=== PATIENT | female | born 1990 | race Caucasian/White ===

== ENCOUNTER 2019-01-19 04:50 | Inpatient (IN) | payer MEDICAID, OTHER ==
[~2019-01-19] VITALS: Ht 154.9 cm; Wt 65.9 kg
[2019-01-19] VITALS (16 sets, daily range): BP systolic 100–127; BP diastolic 57–89
--- NOTE | 2019-01-19 05:00 | NUR ---
NEIDA CHILDRESS presented to unit via WC from ED, accompanied by family and staff, with c/o WATER BROKE,CONTRACTIONS. NEIDA CHILDRESS weighed, gowned, voided, and to bed. EFHM and TOCO applied, VS taken. NEIDA CHILDRESS oriented to bed controls, call light, TV, heat, and A/C controls.
--- NOTE | 2019-01-19 05:18 | NUR ---
Dr. Nuno called and informed that pt of Dr. Reyes , 39/2 presented with ruptured membranes and is 7-8cm dilated, 100% effaced, and -1 station. states that she is on her way.
[2019-01-19] MEDS ORDERED: D5 LR IV SOLUTION 1,000 ML IV ONE (05:19)
[2019-01-19 05:20] LABS: BILIRUBIN,URINE NEGATIVE (NEGATIVE); CLARITY,URINE SLIGHTLY CLOUDY; COLOR,URINE YELLOW; GLUCOSE, URINE (UA) NEGATIVE (NEGATIVE); KETONES,URINE NEGATIVE (NEGATIVE); LEUKOCYTE ESTERASE ,URINE 1+ (NEGATIVE); NITRITE,URINE NEGATIVE (NEGATIVE); PH,URINE 7 (5-9); PROTEIN,URINE NEGATIVE (NEGATIVE); UROBILINOGEN,URINE NORMAL (NORMAL)
[2019-01-19] MEDS ORDERED: D5 LR IV SOLUTION 1,000 ML IV SCH (05:27)
[2019-01-19 05:30] LABS: BACTERIA,URINE TRACE /HPF; WBC,URINE RARE /HPF
[2019-01-19] MEDS ORDERED: MINERAL OIL CONCENTRATE 99.9% 15 ML UDC TOP PRN (05:30)
[2019-01-19 05:49] LABS: BASOPHILS % (AUTO) 0 % (0-10); EOSINOPHILS % (AUTO) 0 % (0-10); HEMATOCRIT 36 % (35-52); HEMOGLOBIN 12.3 G/DL (11.5-16.0); LYMPHOCYTES # (AUTO) 1.3 X 10^3 (1.0-4.0); LYMPHOCYTES % (AUTO) 14 % (12-44); MEAN CORPUSCULAR HEMOGLOBIN 31 PG (25-34); MEAN CORPUSCULAR HGB CONC 35 G/DL (32-36); MEAN CORPUSCULAR VOLUME 90 FL (80-99); MEAN PLATELET VOLUME 10.1 FL (7.4-10.4); MONOCYTES # (AUTO) 0.7 X 10^3 (0.0-1.0); MONOCYTES % (AUTO) 8 % (0-12); NEUTROPHILS # (AUTO) 7.1 X 10^3 (1.8-7.8); NEUTROPHILS % (AUTO) 78 % (42-75); PLATELET COUNT 173 10^3/uL (130-400); RED CELL DISTRIBUTION WIDTH 13.9 % (10.0-14.5); WHITE BLOOD COUNT 9.1 10^3/uL (4.3-11.0)
[2019-01-19] MEDS ORDERED: PREN1TAB79 PO (05:52)
--- NOTE | 2019-01-19 05:53 | NUR ---
Dr. Nuno in pt room. SVE 9cm, 0 station, and 100% effaced.
[2019-01-19] MEDS ORDERED: CATHETER FLUSH 10 ML SYR IV SCH ×2 (06:00→14:00)
--- NOTE | 2019-01-19 06:04 | History & Physical-OB ---
OB - Chief Complaint & HPI Date/Time Date of Admission: Date of Admission: Jan 19, 2019 at 05:20 Date seen by a Provider: Jan 19, 2019 Time Seen by a Provider: 05:59 Chief Complaint/History OB-Reason for Admission/Chief: Rupture of Membranes Hx : 2 Hx Para: 1 Expected Date of Delivery: Jan 24, 2019 Gestational Age in Weeks: 39 Gestational Age in Days: 2 History of Labs O +, Ab neg, Rub Non Imm, GC/Chyl neg, HebB/HIV/RPR NR, GBS neg Allergies and Home Medications Allergies Coded Allergies: No Known Drug Allergies (Unverified , 01/19/19) Home Medications Vit W-Ca,Fe,FA(<1 mg) 1 Each Tablet, 1 EACH PO DAILY, (Reported) Patient Home Medication List Home Medication List Reviewed: Yes OB - History Hx of Present Care: Yes Ultrasounds: Normal mid trimester US Obstetrical Complications: None Medical Complications: None Information Induced Hypertension: No Maternal Gestational Diabetes: No Hemorrhage: No Obstetrical History Hx : 2 Hx Para: 1 Number of Living Children: 1 Hx Termination: No Hx Multiple Gestation: No Hx Ectopic : No Hx Stillbirth: No Hx Complication: No Hx Induced Hypertens: No Hx Maternal Gestational Diabet: No Hx Hemorrhage: No Patient Past Medical History None Social History/Family History HIV/AIDS: No Recent Infectious Disease Expo: No Sexually Transmitted Disease: No Alcohol Use: Denies Use Recreational Drug Use: No Immunizations Hepatitis B: No Tetanus Booster (TDap): Less than 5yrs Rubella: not immune RPR/VDRL: Negative GBS Status: Negative HBsAG: Negative OB - Admission Exam Physical Exam HEENT: NCAT Heart: Rhythm Normal Lungs: Clear Extremities: Normal Reflexes: Normal Cervical Dilatation: 9cm Effacement: 100% Station: 0 Membranes: Ruptured Amniotic Fluid: Clear Decelerations: No Decelerations Short Term Variability: Present Contractions on Admission: < 5 Minutes Apart Labs Laboratory Tests Test 01/19/19 05:05 01/19/19 05:30 Range/Units Urine Color YELLOW Urine Clarity SLIGHTLY CLOUDY Urine pH 7 5-9 Urine Specific [place] 1.005 L 1.016-1.022 Urine Protein NEGATIVE NEGATIVE Urine Glucose (UA) NEGATIVE NEGATIVE Urine Ketones NEGATIVE NEGATIVE Urine Nitrite NEGATIVE NEGATIVE Urine Bilirubin NEGATIVE NEGATIVE Urine Urobilinogen NORMAL NORMAL MG/DL Urine Leukocyte Esterase 1+ H NEGATIVE Urine RBC (Auto) 2+ H NEGATIVE Urine RBC 2-5 H /HPF Urine WBC RARE /HPF Urine Squamous Epithelial Cells 5-10 /HPF Urine Crystals NONE /LPF Urine Bacteria TRACE /HPF Urine Casts NONE /LPF Urine Mucus NEGATIVE /LPF Urine Culture Indicated NO White Blood Count 9.1 4.3-11.0 10^3/uL Red Blood Count 3.93 L 4.35-5.85 10^6/uL Hemoglobin 12.3 11.5-16.0 G/DL Hematocrit 36 35-52 % Mean Corpuscular Volume 90 80-99 FL Mean Corpuscular Hemoglobin 31 25-34 PG Mean Corpuscular Hemoglobin Concent 35 32-36 G/DL Red Cell Distribution Width 13.9 10.0-14.5 % Platelet Count 173 130-400 10^3/uL Mean Platelet Volume 10.1 7.4-10.4 FL Neutrophils (%) (Auto) 78 H 42-75 % Lymphocytes (%) (Auto) 14 12-44 % Monocytes (%) (Auto) 8 0-12 % Eosinophils (%) (Auto) 0 0-10 % Basophils (%) (Auto) 0 0-10 % Neutrophils # (Auto) 7.1 1.8-7.8 X 10^3 Lymphocytes # (Auto) 1.3 1.0-4.0 X 10^3 Monocytes # (Auto) 0.7 0.0-1.0 X 10^3 Eosinophils # (Auto) 0.0 0.0-0.3 10^3/uL Basophils # (Auto) 0.0 0.0-0.1 10^3/uL OB - Assessment/Plan/Diagnosis Assessment Assessment: active labor Admission Dx Labor Admission Status: Inpatient Order (span 2 midnights) Reason for Inpatient Admission: Active Labor Plan Plan: Expectant Management Other Plan 28 yo @ 39.2 wga here in active labor Plan - GBS neg - Expectant management Copy Copies To 1: DUY KELLEY MD,GEOVANNA Bower MD Jan 19, 2019 06:04
[2019-01-19] MEDS ORDERED: OXYTOCIN/NORMAL SALINE 500 ML IV ONE (06:21)
[2019-01-19] MEDS: OXYTOCIN/NORMAL SALINE 500 ML IV SCH ×2 (06:42→07:22)
--- NOTE | 2019-01-19 06:45 | NUR ---
Recovery started. FF1/U, light rubra bleeding, no clots noted.
--- NOTE | 2019-01-19 06:56 | OB Labor & Delivery Record ---
Vag Delivery Note Vag Delivery Note Date of Delivery: 01/19/19 Preoperative Diagnosis: Agueda Stephen is a (28 /Para 2 / 1, Gestational Age (wks)39.2 here in active labor following SROM Postoperative Diagnosis: Same Surgeon: GEOVANNA KHALIL Chemical Radiation Technician: None Anesthesia: None Delivery Type: Uncomplicated @ 0638 Findings: Viable female , apgars 9/9, weight 8 #0, 3615 Lacerations: None Intact placenta with 3 vessel cord. No nuchal cord, body cord or shoulder dystocia Estimated Blood Loss: 150 ml Complications: None Condition: Stable Description of Procedure: The patient is a 28 year old female who presented SROM in active labor. She was admitted and informed consent was obtained. Her labor course was unremarkable. She progressed to complete dilatation and began to push. She was then set up for delivery. The 's head was delivered atraumatically in the TWIN position. The shoulders and remainder of the 's body were then delivered without difficulty. Upon delivery, the head was held below the level of the perineum and the mouth and nares were bulb suctioned. The cord was doubly clamped and cut by FOB and the infant was place on maternal abdomen and attended to by pediatric nurse. An intact placenta with 3-vessel cord delivered via Zainab and there was found to be minimal bleeding.~ Vigorous fundal massage was performed and the fundus was found to be firm. IV oxytocin was given. Examination of the vagina and perineum revealed no lacerations that required repair. Following the repair, sponge, instrument and needle counts were correct. Mom and baby were both in stable condition in the labor suite. Vitals - Labs Labs Laboratory Tests 01/19/19 05:05: Urine Color YELLOW, Urine Clarity SLIGHTLY CLOUDY, Urine pH 7, Urine Specific [place] 1.005L, Urine Protein NEGATIVE, Urine Glucose (UA) NEGATIVE, Urine Ketones NEGATIVE, Urine Nitrite NEGATIVE, Urine Bilirubin NEGATIVE, Urine Urobilinogen NORMAL, Urine Leukocyte Esterase 1+H, Urine RBC (Auto) 2+H, Urine RBC 2-5H, Urine WBC RARE, Urine Squamous Epithelial Cells 5-10, Urine Crystals NONE, Urine Bacteria TRACE, Urine Casts NONE, Urine Mucus NEGATIVE, Urine Culture Indicated NO 01/19/19 05:30: White Blood Count 9.1, Red Blood Count 3.93L, Hemoglobin 12.3, Hematocrit 36, Mean Corpuscular Volume 90, Mean Corpuscular Hemoglobin 31, Mean Corpuscular Hemoglobin Concent 35, Red Cell Distribution Width 13.9, Platelet Count 173, Mean Platelet Volume 10.1, Neutrophils (%) (Auto) 78H, Lymphocytes (%) (Auto) 14 , Monocytes (%) (Auto) 8, Eosinophils (%) (Auto) 0, Basophils (%) (Auto) 0, Neutrophils # (Auto) 7.1, Lymphocytes # (Auto) 1.3, Monocytes # (Auto) 0.7, Eosinophils # (Auto) 0.0, Basophils # (Auto) 0.0 GEOVANNA KHALIL MD Jan 19, 2019 06:56
[2019-01-19] MEDS ORDERED: MEASLES,MUMPS,RUBELLA 1 EA INJ SQ ONE (07:00)
[2019-01-19] MEDS ORDERED: WITCH HAZEL(TUCKS) 40 EA JAR TOP PRN (07:00)
[2019-01-19] MEDS ORDERED: BENZOCAINE/MENTHOL (DERMOPLAST) 56 ML CAN TP PRN (07:00)
[2019-01-19] MEDS ORDERED: TETANUS,DIPTH,PERTUSS P/F (BOOSTRIX) 0.5 ML VIAL IM ONE (07:00)
[2019-01-19] MEDS ORDERED: FLU QUADRIvalent (5+ YOA) 2018-2019 (AFLURIA) 0.5 ML IM ONE (07:00)
--- NOTE | 2019-01-19 07:00 | NUR ---
FFU/1, light rubra bleeding, no clots noted. . Ice water provided. No questions or concerns voiced at this time.
--- NOTE | 2019-01-19 07:15 | NUR ---
Recovery started. FF/U, light rubra bleeding, no clots noted.
--- NOTE | 2019-01-19 07:30 | NUR ---
JONAH CARE WITH PAD CHANGE. FUNDUS MASSAGED TO FIRM AT U+1. EXPRESSED 3 3-4 CM CLOTS. VAGINAL FLOW MOD RUBRA. PAD SATURATED. DENIES URGE TO VOID BUT BLADDER FILLING. ASSESSMENT COMPLETED. DENIES PAIN. FAMILY AT BEDSIDE. INSTRUCTED ON ROOM SERVICE. WANTS TO WAIT UNTIL IN PP ROOM TO EAT.
--- NOTE | 2019-01-19 08:30 | NUR ---
UP TO THE BATHROOM WITH ASSISTANCE X2. VOIDED WITHOUT PROBLEMS. PERICARE AND PAD CHANGE. PREPARING FOR TRANSFER TO PP ROOM.
--- NOTE | 2019-01-19 08:40 | NUR ---
TRANSFERRED TO ROOM 310 VIA W/C IN STABLE CONDITION ACC BY THIS RN, STUDENT NURSE'S ,FOB, IN CRIB, AND OTHER FAMILY MEMBERS. ASSISTED TO BED. GOWN CHANGED. FF U+1. VAG FLOW LT/MOD RUBRA. ORIENTED TO SURROUNDING, CALL LIGHT OPERATION, ROOM SERVICE PROCEDURE, AND INFORMATION PAPERS.
[2019-01-19] MEDS: IBUPROFEN 600 MG (MOTRIN) TAB PO SCH ×3 (09:29→20:37)
--- NOTE | 2019-01-19 10:00 | NUR ---
DOING WELL. STATES GOT UP TO THE BATHROOM BY SELF. EATING BREAKFAST. STATES TIRED. FF U+1. VAG FLOW LT/MOD RUBRA. REPORTS PASSING A CLOT APPROX. SIZE OF EGG. INFORMED PT OF NEED TO LET RN SEE CLOTS EGG SIZED OR LARGER. STATES UNDERSTANDING.
--- NOTE | 2019-01-19 12:10 | NUR ---
SALINE LOCK D/C'ED WITH TIP INTACT. SITE CLEAR. STATES PAIN WAS A 7 WITH BUT JUST SORE FROM FUNDAL MASSAGE WHEN NOT CRAMPING.
--- NOTE | 2019-01-19 14:00 | NUR ---
CONTINUES TO VOID WELL. AMBULATES WITHOUT DIFFICULTY. FF U/0. VAG FLOW LT/MOD WITHOUT FURTHER CLOTS PER PT. CONTINUES TO CARE FOR IN ROOM.
[2019-01-19] MEDS ORDERED: MEASLES,MUMPS,RUBELLA 1 EA INJ ONE (14:57)
--- NOTE | 2019-01-19 15:12 | NUR ---
MMR GIVEN SUBQ IN LEFT UPPER ARM. SITE CLEAR.
--- NOTE | 2019-01-19 15:30 | NUR ---
SHOWERED WITHOUT PROBLEMS. SPOUSE AT BEDSIDE HOLDING .
--- NOTE | 2019-01-19 17:15 | NUR ---
DENIES ANY PAIN FF U/0. VAG FLOW LT RUBRA PER PT. HOLDING INFANT. STATES WELL.
--- NOTE | 2019-01-19 18:30 | NUR ---
EATING STORK MEAL.
--- NOTE | 2019-01-19 19:44 | NUR ---
To patient room at this time. Stork meal finished. , patient and s/o watching tv. POC discussed with patient. Patient and s/o voice understanding, no further needs or questions at this time. Call light within reach. Will return for assessment and vs.
[2019-01-20 00:10] VITALS: BP 102/62
[2019-01-20 03:33] VITALS: BP 98/56
[2019-01-20 07:55] VITALS: BP 117/82
[2019-01-20 08:27] VITALS: BP 117/82
[2019-01-20] MEDS: IBUPROFEN 600 MG (MOTRIN) TAB PO SCH ×2 (08:57→14:59)
--- NOTE | 2019-01-20 14:16 | Discharge Summary ---
Diagnosis/Chief Complaint Date of Admission Jan 19, 2019 at 05:20 Date of Discharge 01/20/19 Admission Diagnosis Admission Diagnosis Term 39 week gestation SROM Discharge Diagnosis Term delivery of female infant Uncomplicated Discharge Summary-Simple/Stand Procedures Uncomplicated Discharge Physical Examination Allergies: Coded Allergies: No Known Drug Allergies (Unverified , 01/19/19) Vitals & I&Os Vital Sign - Last 12Hours Date Time Temp Pulse Resp B/P (MAP) Pulse Ox O2 Delivery O2 Flow Rate FiO2 01/20/19 08:27 101 20 117/82 98 Room Air 01/20/19 07:55 97.5 General Appearance: Alert, Oriented X3, Cooperative, No Acute Distress HEENT: Mucous Memb Moist/[place] Respiratory: Clear to Auscultation, Normal Air Movement Cardiovascular: Regular Rate, No Murmurs Abdominal: Normal Bowel Sounds, Soft, No Tenderness, Other (fundus firm and below umbilicus) Extremities: No Edema, No Tenderness/Swelling Skin: No Rashes, No Breakdown Neuro: Normal Speech, Strength at 5/5 X4 Ext, Sensation Intact, Cranial Nerves 3-12 NL Psych/Mental Status: Mental Status NL, Mood NL Hospital Course Was the Problem List Reviewed?: Yes See final discharge diagnosis. Discussion & Recommendations 28 yo G2 now P2 @ 39 wga delivered term female via Uncomplicated Discharge Condition at discharge stable Instructions to patient/family Please see electronic discharge instructions given to patient. Discharge Medications Reviewed and agree with Discharge Medication list on patient's Discharge Instruction sheet Clinical Quality Measures DVT/VTE Risk/Contraindication: Risk Factor Score Per Nursin RFS Level Per Nursing on Admit: 1=Low/No VTE PPX Copy Copies To 1: DUY KELLEY MD, HOLLY R MD Jan 20, 2019 14:16
[2019-01-20] MEDS ORDERED: IBUP-844 PO (14:17)
--- NOTE | 2019-01-20 14:19 | Discharge Instructions ---
Discharge Inst-Women's Serv Depart Medications New, Converted or Re-Newed RX: Transmitted to Pharmacy New Medications: Ibuprofen (Ibu) 600 Mg Tablet 600 MG PO Q6H, #90 TAB Continued Medications: Vit W-Ca,Fe,FA(<1 mg) ( Vitamins) 1 Each Tablet 1 EACH PO DAILY, TAB Follow Up/Instructions Goal/Follow Up: F/u with Dr Kelley in 6 weeks Activity Activity: Bedrest Driving Instructions: You May Drive NO SMOKING: NO SMOKING Nothing Inside Vagina: No Douching, No [place], No Tampons Diet Discharge Diet: No Restrictions Symptoms to Report to : Bleeding Excessive, Fever Over 101 Degrees F, Nausea /Vomiting, Shortness of Breath Copies To 1: DUY KELLEY MD, HOLLY R MD Jan 20, 2019 14:19
--- NOTE | 2019-01-20 14:55 | NUR ---
Pt discharged. Verbalized understanding of oral and written instructions. to be transferred due to failed [facility]CHD results. Awaiting [facility]'s arrival. Addendum: 01/20/19 at 1613 by WYATT JOYA RN Called [facility] in [place] to cancel Ibuprofen prescription and called to [facility] in [place].
== END 2019-01-20 16:18 | disposition home or self-care (01) | DRG 807 ==
LOC: WSo 04:50 → LDRP 04:51 → WSo 05:20 → LDRP 07:36
PROVIDERS: ADMIT Family Medicine; ATTEND Family Medicine
PROC: 10E0XZZ Delivery of Products of Conception, External Approach (ICD-10-PCS; principal; 2019-01-19)
DX: O80 Encounter for full-term uncomplicated delivery (principal); Z37.0 Single live birth; Z3A.39 39 weeks gestation of pregnancy
CPT/HCPCS: 36415; 81000; 85025; 86850; 86900; 86901; 90707; 99212

== ENCOUNTER → 2019-10-28 | Outpatient (CLI) | payer MEDICAID ==
[~2019-10-28] MED LIST: IBUP-844 PO; PREN1TAB79 PO
[2019-10-28 12:07] LABS: BASOPHILS % (AUTO) 0 % (0-10); EOSINOPHILS % (AUTO) 1 % (0-10); HEMATOCRIT 34 % (35-52); HEMOGLOBIN 11.1 G/DL (11.5-16.0); LYMPHOCYTES % (AUTO) 16 % (12-44); MEAN CORPUSCULAR HEMOGLOBIN 30 PG (25-34); MEAN CORPUSCULAR HGB CONC 33 G/DL (32-36); MEAN CORPUSCULAR VOLUME 93 FL (80-99); MEAN PLATELET VOLUME 9.4 FL (7.4-10.4); MONOCYTES % (AUTO) 5 % (0-12); NEUTROPHILS # (AUTO) 6.1 X 10^3 (1.8-7.8); NEUTROPHILS % (AUTO) 77 % (42-75); PLATELET COUNT 212 10^3/uL (130-400); RED CELL DISTRIBUTION WIDTH 13.5 % (10.0-14.5); WHITE BLOOD COUNT 7.9 10^3/uL (4.3-11.0)
[2019-10-28 12:08] LABS: EOSINOPHILS # (AUTO) 0.1 10^3/uL (0.0-0.3); LYMPHOCYTES # (AUTO) 1.3 X 10^3 (1.0-4.0); MONOCYTES # (AUTO) 0.4 X 10^3 (0.0-1.0)
[2019-10-28 12:29] LABS: BILIRUBIN,URINE NEGATIVE (NEGATIVE); CLARITY,URINE CLEAR; COLOR,URINE YELLOW; GLUCOSE, URINE (UA) TRACE (NEGATIVE); KETONES,URINE NEGATIVE (NEGATIVE); NITRITE,URINE NEGATIVE (NEGATIVE); PROTEIN,URINE NEGATIVE (NEGATIVE)
[2019-10-28 12:30] LABS: BACTERIA,URINE FEW /HPF; LEUKOCYTE ESTERASE ,URINE 2+ (NEGATIVE)
== END ==
LOC: LAB FS 11:28
PROVIDERS: ATTEND Family Medicine
DX: Z34.80 Encounter for supervision of other normal pregnancy, unspecified trimester (principal); R30.0 Dysuria
CPT/HCPCS: 36415; 81000; 82947; 85025; 86592; 87088

== ENCOUNTER → 2019-11-03 | Outpatient (CLI) | payer MEDICAID ==
[2019-11-03 16:47] LABS: CLARITY,URINE CLOUDY; COLOR,URINE YELLOW; GLUCOSE, URINE (UA) NEGATIVE (NEGATIVE); PROTEIN,URINE NEGATIVE (NEGATIVE)
[2019-11-03 16:48] LABS: BACTERIA,URINE TRACE /HPF; BILIRUBIN,URINE NEGATIVE (NEGATIVE); KETONES,URINE NEGATIVE (NEGATIVE); LEUKOCYTE ESTERASE ,URINE 3+ (NEGATIVE); NITRITE,URINE NEGATIVE (NEGATIVE); RBC,URINE 0-2 /HPF; SQUAMOUS EPITHELIAL CELL,UR >50 /HPF; WBC,URINE >100 /HPF
== END ==
LOC: LAB FS 16:02
PROVIDERS: ATTEND Family Medicine
DX: R30.0 Dysuria (principal)
CPT/HCPCS: 81000; 87088

== ENCOUNTER 2020-01-14 15:08 | Inpatient (IN) | payer MEDICAID ==
[2020-01-14] VITALS (11 sets, daily range): BP systolic 115–133; BP diastolic 60–82
[~2020-01-14] VITALS: Ht 154.9 cm; Wt 90.9 kg
[~2020-01-14 15:08] MED LIST changes: +OXYTOCIN PRE-MIX DRIP 500 ML IV ONE
--- NOTE | 2020-01-14 15:14 | NUR ---
1514 29 YR OLD FEMALE G 3 P 3 TRANSFERRED FROM ED ACC BY ED STAFF VIA CART TO LABOR ROOM 318 WITH ON CHEST AFTER A SPONTANEOUS VAGINAL DELIVERY OF A VIABLE FEMALE IN HER CAR WHILE ENROUTE TO THE HOSPITAL. SPOUSE PULLED OVER AND DELIVERED BABY. 911 WAS CALLED AND REPORTEDLY ACCOMPANIED TO THE HOSPITAL PT CONTINUED IN PRIVATE CAR. ASSISTED PT TO LABOR BED. PLACENTA REMAINS UNDELIVERED. DR. ALLIE AQUINO. PT HAD CALLED AT 1402 TO STATES WATER BROKE AND WAS ON HER WAY TO THE HOSPITAL FROM [facility]. DR. KELLEY AND DR. CONTRERAS BOTH MADE AWARE OF SITUATION. SUBSEQUENT CALLS ALERTED OB STAFF OF DELIVERING IN CAR. 1517 1000 CC LR STARTED IN LEFT AC WITH A #20 G INTRACATH TRA 125 CC/HR/PUMP. SITE CLEAR. BLOOD OBTAINED FOR LABS PRIOR TO INITIATING FLUIDS. INFANT IN STABLE CONDITION. SEE NURSERY NOTES. 1532 DR. KELLEY HERE. PT PLACED IN STIRRUPS FOR DELIVERY OF THE PLACENTA. 1537 SPONTANEOUS DELIVERY OF THE PLACENTA BY DR. KELLEY. FUNDUS MASSAGED TO FIRM AT U/1. VAG FLOW MODERATE RUBRA. OXYTOCIN STARTED AT 999 MLS/HR/PUMP. SITE CLEAR. 1545 NO REPAIR NEEDED. PERICARE WITH PAD/UNDERWEAR APPLIED. FF U/1. VAG FLOW MOD RUBRA. 1550 OUT OF STIRRUPS. FRESH GOWN. HOLDING . SPOUSE AT BEDSIDE.
[2020-01-14] MEDS: LACTATED RINGERS 1,000 ML IV SCH ×2 (15:17→23:17)
[2020-01-14] MEDS ORDERED: OXYTOCIN PRE-MIX DRIP 500 ML IV SCH (15:46)
--- NOTE | 2020-01-14 15:50 | History & Physical-OB ---
OB - Chief Complaint & HPI Date/Time Date of Admission: Date of Admission: Jan 14, 2020 at 15:08 Date seen by a Provider: Jan 14, 2020 Time Seen by a Provider: 15:30 Chief Complaint/History OB-Reason for Admission/Chief: Onset of Labor Hx : 3 Hx Para: 2 Gestational Age in Weeks: 39 Gestational Age in Days: 1 Allergies and Home Medications Allergies Coded Allergies: No Known Drug Allergies (Unverified , 01/19/19) Home Medications Ibuprofen 600 Mg Tablet, 600 MG PO Q6H Prescribed by: GEOVANNA KHALIL on 01/20/19 1417 Vit W-Ca,Fe,FA(<1 mg) 1 Each Tablet, 1 EACH PO DAILY, (Reported) Patient Home Medication List Home Medication List Reviewed: Yes OB - History Hx of Present Care: Yes Ultrasounds: Normal mid trimester US Obstetrical Complications: None Medical Complications: None Obstetrical History Hx Termination: No Hx Multiple Gestation: No Hx Stillbirth: No Hx Complication: No Hx Induced Hypertens: No Hx Maternal Gestational Diabet: No Patient Past Medical History None Social History/Family History HIV/AIDS: No Sexually Transmitted Disease: No Immunizations Hepatitis B: No Tetanus Booster (TDap): Less than 5yrs OB - Admission Exam Physical Exam HEENT: NCAT Heart: Rhythm Normal Lungs: Clear Abdomen: Other (uterus firm below umbilicus) Extremities: Normal OB - Assessment/Plan/Diagnosis Assessment Admission Dx Preciptous [place] hospital [place] side [place]. Admission Status: Inpatient Order (span 2 midnights) Reason for Inpatient Admission: Term vaginal precipitous delivery. Plan Plan: Expectant Management Other Plan Delivery of Placenta at 1537. Patient doing well. DUY KELLEY MD Jan 14, 2020 15:50
--- NOTE | 2020-01-14 15:52 | OB Labor & Delivery Record ---
Vag Delivery Note Vag Delivery Note Date of Delivery: 01/14/20 Preoperative Diagnosis: Agueda Stephen is a (29 /Para 3 / 2,Gestational Age (wks)39with [1 day] Postoperative Diagnosis: Same Surgeon: DUY KELLEY Store Deli Manager: [none] Anesthesia: [none] Delivery: placenta only Estimated Blood Loss: [100] ml Complications: None Condition: Stable Description of Procedure: The patient is a 29 year old female who presented [after delivery of on highway at approximately 1450. Upon entering the room, I delivered an intact placenta with 3-vessel cord delivered via Zainab and there was found to be minimal bleeding.~ Vigorous fundal massage was performed and the fundus was found to be firm. IV oxytocin was given. Examination of the vagina and perineum revealed no lacerations. Following the repair, sponge, instrument and needle counts were correct. Mom and baby were both in stable condition in the labor suite. DUY KELLEY MD Jan 14, 2020 15:52
[2020-01-14] MEDS ORDERED: TETANUS,DIPTH,PERTUSS P/F (BOOSTRIX) 0.5 ML VIAL IM ONE (16:00)
[2020-01-14] MEDS ORDERED: WITCH HAZEL(TUCKS) 40 EA JAR TOP PRN (16:00)
[2020-01-14] MEDS ORDERED: MEASLES,MUMPS,RUBELLA 1 EA INJ SQ ONE (16:00)
[2020-01-14] MEDS ORDERED: BENZOCAINE/MENTHOL (DERMOPLAST) 60 ML CAN TP PRN (16:00)
--- NOTE | 2020-01-14 16:00 | NUR ---
INFANT WELL. PT C/O CRAMPING. FF U/1. VAG FLOW LT/MOD RUBRA.BLADDER FILLING.
--- NOTE | 2020-01-14 16:15 | NUR ---
1615 FAMILY MEMBERS TO ROOM. FF U+1. VAG FLOW LT/MOD RUBRA. DENIES URGE TO VOID. 1630 FUNDUS REMAINS FIRM BUT ABOVE UMBILICUS. VAG FLOW LT/MOD RUBRA. HOLDING SKIN TO SKIN. 1650 UP TO THE BATHROOM. VOIDED LARGE AMOUNT. PERICARE PERFORMED. TUCKS AND DERMAPLAST APPLIED. BACK TO BED WITHOUT PROBLEMS. VAG FLOW LT/MOD RUBRA. FF U/1. LARGE FUNDUS NOTED. 1700 FAMILY AT BEDSIDE. FF U/1. VAG FLOW LT/MOD RUBRA.
[2020-01-14] MEDS: OXYTOCIN PRE-MIX DRIP 500 ML IV SCH ×2 (16:17→19:46)
[2020-01-14] MEDS: IBUPROFEN 600 MG (MOTRIN) TAB PO SCH ×2 (16:19→22:07)
[2020-01-14 16:53] LABS: BASOPHILS % (AUTO) 0 % (0-10); EOSINOPHILS % (AUTO) 0 % (0-10); HEMATOCRIT 38 % (35-52); HEMOGLOBIN 12.6 G/DL (11.5-16.0); LYMPHOCYTES # (AUTO) 1.7 X 10^3 (1.0-4.0); LYMPHOCYTES % (AUTO) 18 % (12-44); MEAN CORPUSCULAR HEMOGLOBIN 30 PG (25-34); MEAN CORPUSCULAR HGB CONC 34 G/DL (32-36); MEAN CORPUSCULAR VOLUME 89 FL (80-99); MEAN PLATELET VOLUME 10.9 FL (7.4-10.4); MONOCYTES # (AUTO) 0.7 X 10^3 (0.0-1.0); MONOCYTES % (AUTO) 7 % (0-12); NEUTROPHILS # (AUTO) 6.7 X 10^3 (1.8-7.8); NEUTROPHILS % (AUTO) 74 % (42-75); PLATELET COUNT 207 10^3/uL (130-400); RED CELL DISTRIBUTION WIDTH 14.5 % (10.0-14.5); WHITE BLOOD COUNT 9.1 10^3/uL (4.3-11.0)
[2020-01-14] MEDS: ACETAMINOPHEN 500 MG TAB (TYLENOL) PO SCH (17:55)
--- NOTE | 2020-01-14 18:00 | NUR ---
UP TO THE BATHROOM. LARGE VOID. PERICARE PERFORMED. PLAN TO LET PT EAT AND THEN TRANSFER TO PP ROOM. SPOUSE AT BEDSIDE.
--- NOTE | 2020-01-14 18:30 | NUR ---
TRANSFERRED TO ROOM 309 VIA W/C ACC BY SPOUSE, IN OPEN CRIB, AND THIS RN. ORIENTED TO SURROUNDINGS, CALL LIGHT, AND INFORMATION PAPERS. MENU GIVEN WITH DIETARY NUMBER AND INSTRUCTIONS. FF U/1. VAG FLOW LT/MOD RUBRA.
--- NOTE | 2020-01-14 19:35 | NUR ---
Pt in bed, . Fundus checked per this RN. Fundus firm. No excessive bleeding noted.
[2020-01-14] MEDS: DOCUSATE SODIUM 100 MG (COLACE) CAP PO SCH (20:55)
[2020-01-14] MEDS: CATHETER FLUSH 10 ML SYR IV SCH (22:07)
[2020-01-15] MEDS: ACETAMINOPHEN 500 MG TAB (TYLENOL) PO SCH ×3 (00:25→12:03)
[2020-01-15] MEDS: OXYTOCIN PRE-MIX DRIP 500 ML IV SCH ×2 (00:46→04:45)
[2020-01-15 00:48] VITALS: BP 112/70
[2020-01-15 04:00] VITALS: BP 122/72
[2020-01-15] MEDS: IBUPROFEN 600 MG (MOTRIN) TAB PO SCH ×2 (04:51→10:44)
[2020-01-15 05:38] LABS: BASOPHILS % (AUTO) 0 % (0-10); EOSINOPHILS # (AUTO) 0.1 10^3/uL (0.0-0.3); EOSINOPHILS % (AUTO) 1 % (0-10); HEMATOCRIT 33 % (35-52); HEMOGLOBIN 11.1 G/DL (11.5-16.0); LYMPHOCYTES # (AUTO) 1.9 X 10^3 (1.0-4.0); LYMPHOCYTES % (AUTO) 20 % (12-44); MEAN CORPUSCULAR HEMOGLOBIN 30 PG (25-34); MEAN CORPUSCULAR HGB CONC 33 G/DL (32-36); MEAN CORPUSCULAR VOLUME 89 FL (80-99); MEAN PLATELET VOLUME 10.1 FL (7.4-10.4); MONOCYTES # (AUTO) 0.8 X 10^3 (0.0-1.0); MONOCYTES % (AUTO) 8 % (0-12); NEUTROPHILS # (AUTO) 6.7 X 10^3 (1.8-7.8); NEUTROPHILS % (AUTO) 71 % (42-75); PLATELET COUNT 158 10^3/uL (130-400); RED CELL DISTRIBUTION WIDTH 14.7 % (10.0-14.5); WHITE BLOOD COUNT 9.4 10^3/uL (4.3-11.0)
[2020-01-15] MEDS: CATHETER FLUSH 10 ML SYR IV SCH (06:32)
[2020-01-15 08:00] VITALS: BP 117/74
--- NOTE | 2020-01-15 08:00 | NUR ---
A.M. ASSESSMENT COMPLETED. VSS. CARING FOR IN ROOM. GOOD INTERACTION NOTED.
[2020-01-15] MEDS: DOCUSATE SODIUM 100 MG (COLACE) CAP PO SCH (08:50)
--- NOTE | 2020-01-15 10:00 | NUR ---
CONTINUES TO CARE FOR IN ROOM. GOOD INTERACTION NOTED.
[2020-01-15 12:00] VITALS: BP 116/76
--- NOTE | 2020-01-15 12:12 | Discharge Summary ---
Diagnosis/Chief Complaint Date of Admission Jan 14, 2020 at 15:08 Date of Discharge January 15, 2020 Admission Diagnosis Admission Diagnosis Precipitous term vaginal delivery outside hospital. Discharge Diagnosis Precipitous term vaginal delivery. Discharge Summary-OBS Procedures None. Discharge Physical Examination Allergies: Coded Allergies: No Known Drug Allergies (Unverified , 01/19/19) Vitals & I&Os Intake and Output 01/15/20 00:00 Intake Total 1375 ml Balance 1375 ml Vital Sign - Last 12Hours Date Time Temp Pulse Resp B/P (MAP) Pulse Ox O2 Delivery O2 Flow Rate FiO2 01/15/20 08:00 36.5 98 18 117/74 (88) 98 Room Air General Appearance: Alert, Oriented X3 HEENT: Atraumatic Respiratory: Clear to Auscultation Abdominal: Other (fundus firm below umbilicus) Extremities: No Edema Skin: No Rashes Neuro: Normal Gait Psych/Mental Status: Mental Status NL Hospital Course Was the Problem List Reviewed?: Yes Patient was admitted. Placenta was delivered on admission. The rest of course was uneventful. Labs Laboratory Tests 01/14/20 15:17: White Blood Count 9.1, Red Blood Count 4.25L, Hemoglobin 12.6, Hematocrit 38, Mean Corpuscular Volume 89, Mean Corpuscular Hemoglobin 30, Mean Corpuscular Hemoglobin Concent 34, Red Cell Distribution Width 14.5, Platelet Count 207, Mean Platelet Volume 10.9H, Neutrophils (%) (Auto) 74, Lymphocytes (%) (Auto) 18, Monocytes (%) (Auto) 7, Eosinophils (%) (Auto) 0, Basophils (%) (Auto) 0, Neutrophils # (Auto) 6.7, Lymphocytes # (Auto) 1.7, Monocytes # (Auto) 0.7, Eosinophils # (Auto) 0.0, Basophils # (Auto) 0.0 01/15/20 05:11: White Blood Count 9.4, Red Blood Count 3.72L, Hemoglobin 11.1L, Hematocrit 33L, Mean Corpuscular Volume 89, Mean Corpuscular Hemoglobin 30, Mean Corpuscular Hemoglobin Concent 33, Red Cell Distribution Width 14.7H, Platelet Count 158, Mean Platelet Volume 10.1, Neutrophils (%) (Auto) 71, Lymphocytes (%) (Auto) 20, Monocytes (%) (Auto) 8, Eosinophils (%) (Auto) 1, Basophils (%) (Auto) 0, Neutrophils # (Auto) 6.7, Lymphocytes # (Auto) 1.9, Monocytes # (Auto) 0.8, Eosinophils # (Auto) 0.1, Basophils # (Auto) 0.0 Discharge Instructions to patient/family Please see electronic discharge instructions given to patient. Discharge Medications Reviewed and agree with Discharge Medication list on patient's Discharge Instruction sheet Clinical Quality Measures DVT/VTE Risk/Contraindication: Risk Factor Score Per Nursin RFS Level Per Nursing on Admit: 1=Low/No VTE PPX DUY KELLEY MD Jan 15, 2020 12:12
--- NOTE | 2020-01-15 12:14 | Discharge Summary ---
Discharge Inst-Women's Serv Reconcile Patient Problems Problems Reviewed?: Yes Depart Medications New, Converted or Re-Newed RX: Other Final Diagnosis Term vaginal delivery at 39 1/7 wga. Follow Up/Instructions Goal/Follow Up: Follow-up with Dr. Kelley in 6 weeks. Activity Activity: Activity as Tolerated Driving Instructions: You May Drive NO SMOKING: NO SMOKING Nothing Inside Vagina: No Douching, No [place], No Tampons Diet Discharge Diet: No Restrictions Symptoms to Report to : Bleeding Excessive, Fever Over 101 Degrees F, Urination Difficulty, Vaginal Bleeding Increase For Any Problems or Questions: Contact Your Physician DUY KELLEY MD Jan 15, 2020 12:14
--- NOTE | 2020-01-15 12:15 | NUR ---
DR. KELLEY HERE TO SEE PT. PLAN FOR DISCHARGE.
--- NOTE | 2020-01-15 14:25 | NUR ---
INFANT. DENIES ANY WANTS OR NEEDS.
--- NOTE | 2020-01-15 16:05 | NUR ---
DISCHARGE INSTRUCTIONS REVIEWED WITH COPY TO PT. STATES UNDERSTANDING OF ALL INSTRUCTIONS AND NEED TO F/U SCHEDULED AND NEEDED.
[2020-01-15 16:40] VITALS: BP 116/76
--- NOTE | 2020-01-15 16:40 | NUR ---
DISMISSED AMB FROM WS WITH INFANT IN STABLE CONDITION TO FAMILY CAR ACC BY SPOUSE AND SARAH HAYES RN.
--- OUTSIDE RECORDS SUMMARY | 2020-01-15 19:59 | XMS REPORT ---
Author Author Agueda KELLEY Organization [facility] Address [address] [place] [address] Care Team Providers Care Property Handler Name Role Phone KELLEYLOU DownsA Unavailable PROBLEMS Unknown Problems ALLERGIES No Known Allergies ENCOUNTERS Encounter Location Date Diagnosis [address] [id number] March, care and examination Z39.[address] [address] Dec, Supervision of other normal Z3 4.80 and 38 weeks gestation of Z3A.[address] [address] Dec, Supervision of other normal Z3 4.80 and 37 weeks gestation of Z3A.[address] [address] Dec, Supervision of other normal Z3 4.80 and 35 weeks gestation of Z3A.[address] [address] Dec, Supervision of other normal Z3 4.80 and 35 weeks gestation of Z3A.[address] [address] Nov, [facility] [address] [facility] [id number] [address] [place] [phone] Oct, [facility] [address] [id number] [address] [place] [id number] Oct, [facility] [address] [facility] [id number] [address] [place] [id number] Sep, [facility] [address] [facility] [id number] [address] [place] [phone] Aug, [facility] [address] [facility] [id number] [address] [place] [phone] Jun, [facility] [address] [facility] [id number] [address] [place] [phone] May, IMMUNIZATIONS No Known Immunizations SOCIAL HISTORY Never Assessed REASON FOR VISIT OB PLAN OF CARE VITAL SIGNS Height 61 in 2019-01-14 Weight 176 lbs 2019-01-14 BMI 33.255 kg/m2 2019-01-14 Blood pressure systolic 118 mmHg 2019-01-14 Blood pressure diastolic 63 mmHg 2019-01-14 MEDICATIONS Medication Instructions Dosage Frequency Start Date End Date Duration S tatus 28-0.8 MG Orally Once a day 1 tablet 24h 30 day(s) Active RESULTS No Results PROCEDURES No Known procedures INSTRUCTIONS MEDICATIONS ADMINISTERED No Known Medications
--- OUTSIDE RECORDS SUMMARY | 2020-01-15 19:59 | XMS REPORT | Continuity of Care Document ---
Author Organization Unknown Address Unknown Phone Unavailable Allergies There is no data. Medications There is no data. Problems There is no data. Procedures There is no data. Results Test Result Range CULTURE, GROUP B STREP WITH SUSCEPTIBILI TY - 12/31/18 15:32 CULTURE, GROUP B STREP WITH SUSCEPTIBILITY SEE NOT E NRG CULTURE, URINE - 08/01/19 15:09 CULTURE, URINE, ROUTINE SEE NOTE NRG GC/CHLAMYDIA (SWAB OR URINE)-RAPID - 11/20 14:40 CHLAMYDIA TRACHOMATIS RNA, TMA NOT DETECTED NOT DETECTED NEISSERIA GONORRHOEAE RNA, TMA NOT DETECTED NOT DETECTED COMMENT NRG CULTURE, URINE - 09/02/19 14:40 CULTURE, URINE, ROUTINE SEE NOTE NRG CULTURE, GROUP B STREP (VAGINAL) - 12/22 16:40 STREPTOCOCCUS, GROUP B CULTURE SEE NOTE NRG Encounters ACCT No. Visit Date/Time Discharge Status Pt. Type Provider Facility Loc./Unit Complaint [id number] 12/29/2019 14:00:00 12/29/2019 23:59: 59 CLS Outpatient [facility] [id number] 12/22/2019 16:15:00 Document Registration [id number] 09/02/2019 14:00:00 Document Registration [id number] 08/01/2019 14:20:00 Document Registration [id number] 12/31/2018 14:15:00 Document Registration
== END 2020-01-15 16:40 | disposition home or self-care (01) | DRG 776 ==
LOC: LDRP 15:08
PROVIDERS: ADMIT Family Medicine; ATTEND Family Medicine
DX: Z39.0 Encounter for care and examination of mother immediately after delivery (principal); Z79.1 Long term (current) use of non-steroidal anti-inflammatories (NSAID)
CPT/HCPCS: 36415; 85025; 86850; 86900; 86901

== ENCOUNTER → 2022-04-04 | Outpatient (CLI) | payer MEDICAID ==
[~2022-04-04] MED LIST changes: -OXYTOCIN PRE-MIX DRIP 500 ML IV ONE
== END ==
LOC: LAB FS 15:45
PROVIDERS: ATTEND Family Medicine
DX: Z34.91 Encounter for supervision of normal pregnancy, unspecified, first trimester (principal); Z3A.09 9 weeks gestation of pregnancy
CPT/HCPCS: 36415; 84702

== ENCOUNTER → 2022-04-07 | Outpatient (CLI) | payer MEDICAID | LOC: LAB FS 16:46 | PROVIDERS: ATTEND Family Medicine | DX: Z34.91 Encounter for supervision of normal pregnancy, unspecified, first trimester (principal); Z3A.09 9 weeks gestation of pregnancy | CPT/HCPCS: 36415; 84702 ==

== ENCOUNTER → 2022-04-29 | Outpatient (CLI) | payer MEDICAID | LOC: LAB FS 17:10 | PROVIDERS: ATTEND Family Medicine | DX: O02.1 Missed abortion (principal); Z3A.00 Weeks of gestation of pregnancy not specified | CPT/HCPCS: 36415; 84702 ==

== ENCOUNTER → 2022-05-12 | Outpatient (CLI) | payer MEDICAID | LOC: LAB FS 15:27 | PROVIDERS: ATTEND Family Medicine | DX: O02.1 Missed abortion (principal) | CPT/HCPCS: 36415; 84702 ==

== ENCOUNTER → 2022-05-23 | Outpatient (CLI) | payer MEDICAID | LOC: LAB FS 11:58 | PROVIDERS: ATTEND Family Medicine | DX: O02.1 Missed abortion (principal) | CPT/HCPCS: 36415; 84702 ==

== ENCOUNTER → 2022-06-17 | Outpatient (CLI) | payer MEDICAID | LOC: LAB FS 15:57 | PROVIDERS: ATTEND Family Medicine | DX: O02.1 Missed abortion (principal) | CPT/HCPCS: 36415; 84702 ==

== ENCOUNTER 2023-09-10 05:53 | Inpatient (IN) | payer MEDICAID ==
[2023-09-10] VITALS (28 sets, daily range): BP systolic 96–132; BP diastolic 54–85
[~2023-09-10] VITALS: Ht 157.5 cm; Wt 85.4 kg
[2023-09-10] MEDS ORDERED: MINERAL OIL 30 ML UDC TOP PRN (06:15)
[2023-09-10] MEDS ORDERED: LACTATED RINGERS 1,000 ML 500 ML IV PRN (06:15)
[2023-09-10 06:54] LABS: BASOPHILS % (AUTO) 0 % (0-10); EOSINOPHILS % (AUTO) 1 % (0-10); HEMATOCRIT 36 % (35-52); HEMOGLOBIN 11.9 g/dL (11.5-16.0); LYMPHOCYTES # (AUTO) 1.3 10^3/uL (1.0-4.0); LYMPHOCYTES % (AUTO) 18 % (12-44); MEAN CORPUSCULAR HEMOGLOBIN 30 pg (25-34); MEAN CORPUSCULAR HGB CONC 33 g/dL (32-36); MEAN CORPUSCULAR VOLUME 91 fL (80-99); MEAN PLATELET VOLUME 10.7 fL (9.0-12.2); MONOCYTES # (AUTO) 0.6 10^3/uL (0.0-1.0); MONOCYTES % (AUTO) 9 % (0-12); NEUTROPHILS # (AUTO) 5.2 10^3/uL (1.8-7.8); NEUTROPHILS % (AUTO) 72 % (42-75); PLATELET COUNT 149 10^3/uL (130-400); WHITE BLOOD COUNT 7.2 10^3/uL (4.3-11.0)
[2023-09-10] MEDS: D5 LR 1,000 ML IV SOLN 1,000 ML IV SCH ×2 (07:25→14:15)
--- NOTE | 2023-09-10 08:26 | History & Physical-OB ---
OB - Chief Complaint & HPI Date/Time Date of Admission: Date of Admission: Sep 10, 2023 at 05:53 Date seen by a Provider: Sep 10, 2023 Time Seen by a Provider: 08:15 Chief Complaint/History OB-Reason for Admission/Chief: Induction of Labor Hx : 6 Hx Para: 3 Expected Date of Delivery: Sep 16, 2023 Gestational Age in Weeks: 39 Gestational Age in Days: 1 Admission Nurse Assessment Rev: Yes History of Labs O+ GBS neg RI HEP B neg HIV neg RPR neg Other This 33yo presents to L&D for IOL d/t HO precipitous deliveries. her last baby delivered in the car on the way to the hospital. She denies LOF VB but is having occasional CTXs Allergies and Home Medications Allergies Coded Allergies: No Known Drug Allergies (Unverified , 01/19/19) Patient Home Medication List Home Medication List Reviewed: Yes Vit W-Ca,Fe,FA(<1 mg) ( Vitamins) 1 Each Tablet, 1 EACH PO DAILY, (Reported) Entered as Reported by: JESUS ALEJO on 01/19/19 0552 Last Action: Reviewed OB - History Hx of Present Care: Yes Ultrasounds: Normal mid trimester US Obstetrical Complications: None Medical Complications: None Information Induced Hypertension: No Maternal Gestational Diabetes: No Hemorrhage: No Obstetrical History Hx : 6 Hx Para: 3 Hx # Term Pregnancies: 3 Number of Living Children: 3 Hx Termination: Yes Hx Total # of Abortions (Spona: 2 Hx Multiple Gestation: No Hx Stillbirth: No Hx Complication: No Hx Induced Hypertens: No Hx Maternal Gestational Diabet: No Patient Past Medical History None Social History/Family History Alcohol Use: Denies Use Smoking Cessation: Never smoker Immunizations Influenza Vaccine Up-to-Date: No; Not Current Hepatitis A: Yes Hepatitis B: Yes Tetanus Booster (TDap): Less than 5yrs OB - Admission Exam Physical Exam Vitals: Vital Signs 09/10/23 06:14 Temp 36.5 Pulse 95 Resp 18 B/P (MAP) 115/70 (85) O2 Delivery Room Air HEENT: NCAT Heart: Rhythm Normal Lungs: Clear Abdomen: Gravid Extremities: Normal Reflexes: Normal Cervical Dilatation: 2cm Effacement: 50% Station: -3 Membranes: Intact Heart Rate: 130's Accelerations: Accelerations Present Decelerations: No Decelerations Short Term Variability: Present Senior Living Variability: Average (6-25) Contractions on Admission: < 5 Minutes Apart Intensity: Mild Leslie Scoring Tool (Modified) Dilation (cm): 1-2cm (1) Effacement (%): 31-51% (1) Descent/Station: -3 (0) Cervix Consistency: Soft (2) Cervix Position: Anterior (2) Add 1 point for: Each previous vaginal delivery (1) Leslie Score: 9 Labs Laboratory Tests Test 09/10/23 06:40 Range/Units White Blood Count 7.2 4.3-11.0 10^3/uL Red Blood Count 3.92 3.80-5.11 10^6/uL Hemoglobin 11.9 11.5-16.0 g/dL Hematocrit 36 35-52 % Mean Corpuscular Volume 91 80-99 fL Mean Corpuscular Hemoglobin 30 25-34 pg Mean Corpuscular Hemoglobin Concent 33 32-36 g/dL Red Cell Distribution Width 13.9 10.0-14.5 % Platelet Count 149 130-400 10^3/uL Mean Platelet Volume 10.7 9.0-12.2 fL Immature Granulocyte % (Auto) 1 % Neutrophils (%) (Auto) 72 42-75 % Lymphocytes (%) (Auto) 18 12-44 % Monocytes (%) (Auto) 9 0-12 % Eosinophils (%) (Auto) 1 0-10 % Basophils (%) (Auto) 0 0-10 % Neutrophils # (Auto) 5.2 1.8-7.8 10^3/uL Lymphocytes # (Auto) 1.3 1.0-4.0 10^3/uL Monocytes # (Auto) 0.6 0.0-1.0 10^3/uL Eosinophils # (Auto) 0.0 0.0-0.3 10^3/uL Basophils # (Auto) 0.0 0.0-0.1 10^3/uL Immature Granulocyte # (Auto) 0.1 0.0-0.1 10^3/uL Syphilis Total Antibody Negative Negative OB - Assessment/Plan/Diagnosis Assessment Assessment: induction of labor Admission Dx IUP @ 39w1d HO precipitous delivery Admit for IOL Admission Status: Inpatient Order (span 2 midnights) Reason for Inpatient Admission: IUP @ 39w1d HO precipitous delivery Admit for IOL Plan Plan: Induction Induction Method: per Pitocin Protocol Copy Copies To 1: DUY KELLEY MD, VICTORIA A DO Sep 10, 2023 08:26
[2023-09-10] MEDS ORDERED: OXYTOCIN DRIP PRE-MIX 500 ML IV SCH ×2 (08:30→13:45)
[2023-09-10] MEDS ORDERED: LIDOCAINE 2% w/EPI 1:200,000 20 ML VIAL ONE (13:11)
--- NOTE | 2023-09-10 13:32 | OB Labor & Delivery Record ---
L&D History Date of Service Date of Service: Sep 10, 2023 History Expected Date of Delivery: Sep 10, 2023 Gestational Age in Weeks: 39 Complications Events: Routine care Operative Indications (Cesarea: N/A-Vaginal Delivery Intrapartal Events: None L&D Stage1 Stage One Onset of Labor - Date: Sep 10, 2023 Onset of Labor - Time: 07:00 Monitors and Tracing Monitor Mode: External Heart Rate: 150 Monitor Accelerations: Non-Uniform Monitor Decelerations: None Station: -3 Assisted Variability: Average (6-10) Short Term Variability: Present Presentation: Vertex Vital Signs VS - Last 72 Hours, by Label 09/10/23 09/10/23 09/10/23 09/10/23 06:14 06:15 07:24 08:42 Temp 36.5 36.5 36.5 Pulse 95 95 86 86 Resp 18 18 18 B/P (MAP) 115/70 (85) 117/68 (84) 115/68 (84) Pulse Ox 97 97 O2 Delivery Room Air Room Air Room Air 09/10/23 09/10/23 09/10/23 09/10/23 08:57 09:13 09:26 09:43 Pulse 89 82 83 82 B/P (MAP) 107/66 (80) 111/64 (80) 111/63 (79) 108/61 (77) Pulse Ox 98 99 98 O2 Delivery Room Air Room Air Room Air 09/10/23 09/10/23 09/10/23 09/10/23 09:57 10:12 10:27 10:42 Temp 36.5 Pulse 77 80 81 91 Resp 18 B/P (MAP) 110/68 (82) 96/54 (68) 108/60 (76) 132/85 (101) Pulse Ox 99 98 98 98 O2 Delivery Room Air Room Air Room Air Room Air 09/10/23 09/10/23 09/10/23 10:58 11:12 11:28 Pulse 86 88 87 B/P (MAP) 103/55 (71) 100/55 (70) 102/55 (71) Pulse Ox 97 97 99 O2 Delivery Room Air Room Air Room Air Rupture of Membranes Spontaneous Ruture of Membrane: Yes Amniotic Membrane Rupture Time: 1041 Amniotic Membrane Fluid Desc.: Clear L&D Stage2 Stage Two Stage II Date: Sep 10, 2023 Stage II Time: 13:13 Monitors and Tracing Monitor Mode: External Heart Rate: 150 Monitor Accelerations: Non-Uniform Monitor Decelerations: None 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 Variability: Average (6-10) Short Term Variability: Present Position: Left Occiput Anterior Presentation: Vertex Cord Descript/Complications Cord Vessel Description: 3 Vessels Delivery Type Delivery Method: Spontaneous Vaginal Anterior Shoulder: Right Episiotomy/Perineal Laceration Laceraction(s)/Extensions: No Episiotomy Description: None Condition of Infant Delivery Delivery Date & Time: 09/10/23 1313 1 minute Comment: 9 5 minute Comment: 9 Condition of Condition of : Living Exam: No Observed Abnormalities Resuscitation Resuscitation: N/A - Spontaneous Resp L&D Stage3 Stage Three Stage III Date: Sep 10, 2023 Stage III Time: 13:23 Pictocin Pitocin Administration mu/min: 6 Pitocin ml/hr: 6 Pitocin Administration Comment: 0950 PITOCIN INCREASED PER PROTOCOL. Placenta Delivery Placenta Delivery: Spontaneous Delivery Summary Summary Estimated blood loss (mL): 200 Condition of Delivery Examined: Cervix Examined Post Hemorrhage: SHADI Hobbs DO Sep 10, 2023 13:32
[2023-09-10] MEDS ORDERED: DIBUCAINE 1% OINTMENT 28 GM TUBE TOP PRN (13:45)
[2023-09-10] MEDS ORDERED: WITCH HAZEL(TUCKS) 40 EA JAR TOP PRN (13:45)
[2023-09-10] MEDS: IBUPROFEN 800 MG TABLET PO SCH ×2 (13:45→21:46)
[2023-09-10] MEDS ORDERED: NALOXONE 0.4 MG/ML 1 ML VIAL IV PRN (13:45)
[2023-09-10] MEDS ORDERED: Tetanus/Diphtheria/Pertussis (Acell) ADULT Vaccine 0.5 ML IM ONE (13:45)
[2023-09-10] MEDS: ACETAMINOPHEN 500 MG TABLET PO SCH ×2 (13:45→20:05)
[2023-09-10] MEDS ORDERED: BENZOCAINE/MENTHOL (DERMOPLAST) 56 ML CAN TP PRN (13:45)
[2023-09-10] MEDS ORDERED: CATHETER FLUSH 10 ML SYR IV SCH (14:00)
[2023-09-10] MEDS: DOCUSATE SODIUM 100 MG CAPSULE PO SCH (20:04)
[2023-09-11] MEDS: ACETAMINOPHEN 500 MG TABLET PO SCH ×3 (02:07→14:01)
[2023-09-11 05:42] LABS: BASOPHILS % (AUTO) 0 % (0-10); EOSINOPHILS % (AUTO) 0 % (0-10); HEMATOCRIT 34 % (35-52); HEMOGLOBIN 11.3 g/dL (11.5-16.0); LYMPHOCYTES # (AUTO) 1.4 10^3/uL (1.0-4.0); LYMPHOCYTES % (AUTO) 16 % (12-44); MEAN CORPUSCULAR HEMOGLOBIN 30 pg (25-34); MEAN CORPUSCULAR HGB CONC 33 g/dL (32-36); MEAN CORPUSCULAR VOLUME 92 fL (80-99); MEAN PLATELET VOLUME 10.3 fL (9.0-12.2); MONOCYTES # (AUTO) 0.8 10^3/uL (0.0-1.0); MONOCYTES % (AUTO) 9 % (0-12); NEUTROPHILS # (AUTO) 6.5 10^3/uL (1.8-7.8); NEUTROPHILS % (AUTO) 75 % (42-75); PLATELET COUNT 144 10^3/uL (130-400); WHITE BLOOD COUNT 8.7 10^3/uL (4.3-11.0)
[2023-09-11] MEDS: IBUPROFEN 800 MG TABLET PO SCH ×2 (06:23→14:00)
[2023-09-11 06:24] VITALS: BP 117/71
--- NOTE | 2023-09-11 06:43 | Postpartum Progress Note ---
Note Note Day # 1 Subjective: Patient is without complaints. Ambulating, voiding. Tolerating a regular diet without nausea or vomiting. Normal lochia. Pain is well controlled with oral pain medications. Breast feeding. [] Objective: VSS AF Physical Exam: General - Alert and oriented, no apparent distress Breast symmetrical no erythema or edema or engorgement Abdomen - Soft, appropriately tender to palpation, non-distended, fundus firm at umbilicus Extremities - no edema, negative Claudia's bilaterally Assessment: [] post- day #1, status post Spontaneous vaginal delivery. Recovering well, hemodynamically stable Plan: Routine care. Encourage breast feeding. Encourage ambulation. Ferrous sulfate supplementation. Plan for discharge [] Vitals - Labs Vital Signs - I&O Vital Signs Date Time Temp Pulse Resp B/P (MAP) Pulse Ox O2 Delivery O2 Flow Rate FiO2 09/11/23 06:24 36.1 90 16 117/71 (86) 99 Room Air 09/10/23 23:59 36.5 98 16 109/67 (81) 97 Room Air 09/10/23 20:07 36.6 102 18 113/63 (80) 97 09/10/23 16:00 36.6 78 18 101/63 (76) 98 Room Air 09/10/23 14:11 86 124/65 (84) 09/10/23 13:56 82 117/72 (87) 09/10/23 13:41 100 112/78 (89) 99 Room Air 09/10/23 13:26 36.5 101 124/76 (92) 09/10/23 13:15 113 116/59 (78) 09/10/23 13:03 36.4 98 18 123/60 (81) 09/10/23 12:28 91 100/62 (75) 09/10/23 12:12 93 114/72 (86) 09/10/23 11:58 80 111/66 (81) 09/10/23 11:45 79 111/70 (84) 09/10/23 11:28 87 102/55 (71) 99 Room Air 09/10/23 11:12 88 100/55 (70) 97 Room Air 09/10/23 10:58 86 103/55 (71) 97 Room Air 09/10/23 10:42 91 132/85 (101) 98 Room Air 09/10/23 10:27 81 108/60 (76) 98 Room Air 09/10/23 10:12 36.5 80 18 96/54 (68) 98 Room Air 09/10/23 09:57 77 110/68 (82) 99 Room Air 09/10/23 09:43 82 108/61 (77) 98 Room Air 09/10/23 09:26 83 111/63 (79) 99 Room Air 09/10/23 09:13 82 111/64 (80) 98 Room Air 09/10/23 08:57 89 107/66 (80) 09/10/23 08:42 86 115/68 (84) 09/10/23 07:24 36.5 86 18 117/68 (84) 97 Room Air I & O 09/11/23 07:00 Intake Total 1750 ml Balance 1750 ml Labs Laboratory Tests 09/11/23 05:29: White Blood Count 8.7, Red Blood Count 3.72L, Hemoglobin 11.3L, Hematocrit 34L, Mean Corpuscular Volume 92, Mean Corpuscular Hemoglobin 30, Mean Corpuscular Hemoglobin Concent 33, Red Cell Distribution Width 14.0, Platelet Count 144, Mean Platelet Volume 10.3, Immature Granulocyte % (Auto) 1, Neutrophils (%) (Auto) 75, Lymphocytes (%) (Auto) 16, Monocytes (%) (Auto) 9, Eosinophils (%) (Auto) 0, Basophils (%) (Auto) 0, Neutrophils # (Auto) 6.5, Lymphocytes # (Auto) 1.4, Monocytes # (Auto) 0.8, Eosinophils # (Auto) 0.0, Basophils # (Auto) 0.0, Immature Granulocyte # (Auto) 0.0 SHADI NARAYANAN DO Sep 11, 2023 06:43
[2023-09-11] MEDS ORDERED: IBUP-1780 PO (06:44)
--- NOTE | 2023-09-11 06:45 | Discharge Inst-Simple/Standard ---
Discharge Inst-Standard Reconcile Patient Problems Problems Reviewed?: Yes Discharge Medications New, Converted or Re-Newed RX: Transmitted to Pharmacy Patient Instructions/Follow Up Plan of Care/Instructions/FU: Follow-up in 2 to 3 weeks Nothing in vagina no sex no tampons or douching Call if increased pain, bleeding or temperature over 100.4 F Activity as Tolerated: Yes Discharge Diet: Regular Diet SHADI NARAYANAN DO Sep 11, 2023 06:45
[2023-09-11] MEDS ORDERED: DIBU30OI TOP (06:50)
[2023-09-11] MEDS ORDERED: DOCU100C37 PO (06:50)
[2023-09-11] MEDS ORDERED: BENZ78AE5 TP (06:50)
[2023-09-11] MEDS ORDERED: PRENATAL VITAMIN TABLET PO SCH (07:00)
[2023-09-11] MEDS ORDERED: OXYC1TAB11 PO ×2 (08:12→09:18)
[2023-09-11 08:15] VITALS: BP 97/63
[2023-09-11] MEDS: DOCUSATE SODIUM 100 MG CAPSULE PO SCH (08:16)
[2023-09-11] MEDS ORDERED: FERROUS SULFATE 325 MG (IRON) TABLET PO SCH (09:00)
[2023-09-11 13:59] VITALS: BP 111/71
== END 2023-09-11 15:40 | disposition home or self-care (01) | DRG 807 ==
LOC: LDRP 05:53
PROVIDERS: ADMIT Obstetrics & Gynecology; ATTEND Obstetrics & Gynecology
PROC: 10E0XZZ Delivery of Products of Conception, External Approach (ICD-10-PCS; principal; 2023-09-10)
PROC: 3E033VJ Introduction of Other Hormone into Peripheral Vein, Percutaneous Approach (ICD-10-PCS; 2023-09-10)
DX: O80 Encounter for full-term uncomplicated delivery (principal); Z37.0 Single live birth; Z3A.39 39 weeks gestation of pregnancy
CPT/HCPCS: 36415; 85025; 86780; 86850; 86900; 86901